=== PATIENT | male | born 1975 | race Caucasian/White ===

== ENCOUNTER 2018-06-25 19:34 | Emergency (ER) | payer OTHER ==
--- NOTE | 2018-06-25 19:56 | PDOC ---
History of Present Illness - General History Source: Patient Exam Limitations: No Limitations - History of Present Illness Initial Comments: 06/25/18 19:58 The patient is a 43 year old male with no significant past medical history of psoriasis who presents to the ER complaining of feeling stressed and fatigued today. Patient states he works evenings and has been stressed at his job. Patient reports a friend, who is an EMT, saw him today and told him he was clammy and cold. His friend took his blood pressure, which was 260 systolic. Patient has no known history of HTN and is not on any meds. Patient has not seen a PCP in several years. Patients blood pressure is 155/90 in the ER. Patient has no other complaints in the ER . The patient denies chest pain, shortness of breath, headache, and dizziness. Denies fever, chills, nausea, vomit, diarrhea, and constipation. Denies dysuria, frequency, urgency, and hematuria. Allergies: penicillins Past surgical history: None reported. Social history: No reported alcohol, drug or cigarette use. ROS General: (+) Fatigued and stressed. No fevers or chills, no weakness, no weight loss HEENT: No change in vision. No sore throat,. No ear pain CardioVascular: No chest pain or shortness of breath Respiratory:No cough, or wheezing. Gastrointestinal: no nausea, vomiting, diarrhea or constipation, No rectal bleeding Genitourinary: No dysuria, hematuria, or frequency Musculoskeletal: No joint or muscle pain or swelling Neurologic: No headache, vertigo, dizziness or loss of consciousness Psychiatric: nor depression Skin: No rashes or easy bruising Endocrine: no increased thirst or abnormal weight change Allergic: no skin or latex allergy All other systems reviewed and normal 06/25/18 19:57 Adult Exam: General: Well-nourished well-developed individual, no acute distress HEENT: Throat: Normal, tonsils normal, no erythema or exudate Neck: Supple, no meningeal signs, no lymphadenopathy Eyes::Pupils equal reactive and round, extraocular motion intact Chest: Nontender to palpation Cardiac: S1-S2 normal, regular rate and rhythm, no murmurs rubs or gallops Respiratory: Lungs clear to auscultation bilateral Abdomen: Soft, nondistended, normal bowel sounds, nontender to palpation diffusely Extremities: Warm, dry, no cyanosis, clubbing, or edema Skin: No rashes Neuro: Alert and oriented x3, nonfocal exam, grossly intact, normal gait Psych: Normal mood and affect <Janis Dexter - Last Filed: 06/25/18 20:03> - General History Source: Patient Exam Limitations: No Limitations - History of Present Illness Initial Comments: 06/25/18 20:41 A portion of this note was documented by scribe services under my direction. I have reviewed the details of the note, within reason, and agree with the documentation. The case summary and management plan written by me. Assessment and plan: This is a 43-year-old male who comes in complaining of generalized fatigue and hypertension. Patient is on no medications for his hypertension and has not followed up with his primary care doctor in many years. Patient had a basic workup with a was normal. Patient blood pressure in the emergency room was approximately 155 systolic. Patient given copies of his blood work and told that he needs to follow-up with his primary care doctor and will need to most likely be started on some blood pressure medication. 06/25/18 20:42 <Stephan Jacobs I - Last Filed: 06/25/18 20:45> - General Chief Complaint: Weakness Stated Complaint: EXTREMELY TIRED, STRESSED, DISORIENTED Time Seen by Provider: 06/25/18 19:41 Past History <Janis Dexter - Last Filed: 06/25/18 20:03> - Past Medical History COPD: No Other medical history: PSORIASIS - Surgical History Orthopedic Surgery: Yes (patellar tendon repair) - Immunization History Td Vaccination: (2004) - Suicide/Smoking/Psychosocial Hx Smoking Status: No Smoking History: Never smoked Have you smoked in the past 12 months: No Number of Cigarettes Smoked Daily: 0 Information on smoking cessation initiated: No Hx Alcohol Use: No Drug/Substance Use Hx: No Substance Use Type: None <Stephan Jacobs I - Last Filed: 06/25/18 20:45> - Past Medical History Allergies/Adverse Reactions: Allergies Allergy/AdvReac Type Severity Reaction Status Date / Time Penicillins Allergy Verified 10/06/12 15:07 Home Medications: Ambulatory Orders NK [No Known Home Medication] 06/25/18 Review of Systems - Review of Systems Able to Perform ROS?: Yes <Janis Dexter - Last Filed: 06/25/18 20:03> *Physical Exam - Vital Signs Last Vital Signs Temp Pulse Resp BP Pulse Ox 98.8 F 80 18 155/90 100 06/25/18 19:44 06/25/18 19:44 06/25/18 19:44 06/25/18 19:44 06/25/18 19:44 <Janis Dexter - Last Filed: 06/25/18 20:03> - Vital Signs Last Vital Signs Temp Pulse Resp BP Pulse Ox 98.8 F 80 18 155/90 100 06/25/18 19:44 06/25/18 19:44 06/25/18 19:44 06/25/18 19:44 06/25/18 19:44 <Stephan Jacobs I - Last Filed: 06/25/18 20:45> Heart Score/ECG Review #1 06/25/18 20:03 EKG performed at 20:04 demonstrates rate of 83, normal sinus rhythm. <Janis Dexter - Last Filed: 06/25/18 20:03> ED Treatment Course - LABORATORY CBC & Chemistry Diagram: 06/25/18 20:00 06/25/18 20:00 <Stephan Jacobs I - Last Filed: 06/25/18 20:45> *DC/Admit/Observation/Transfer - Attestations Scribe Attestion: 06/25/18 19:59 Documentation prepared by Janis Dexter, acting as medical interpreter for Stepahn Jacobs MD. <Janis Dexter - Last Filed: 06/25/18 20:03> - Discharge Dispostion Decision to Admit order: No <Stephan Jacobs I - Last Filed: 06/25/18 20:45> Diagnosis at time of Disposition: Hypertension Qualifiers: Hypertension type: essential hypertension Qualified Code(s): I10 - Essential ( primary) hypertension - Discharge Dispostion Disposition: HOME - Patient Instructions Printed Discharge Instructions: Hypertension (Alternative Therapy) Additional Instructions: Is important that you take your blood work to see her primary care doctor as you most likely will need to be started on blood pressure medication Return to the emergency department immediately with ANY new, persistent or worsening symptoms. Continue any medications as previously prescribed by your physician. You should follow up with your primary doctor as soon as possible regarding today's emergency department visit. . Please make sure your doctor reviews the results of your emergency evaluation. Thank you for coming to the Emergency Department today for your care. It was a pleasure to see you today. Please note that your evaluation is INCOMPLETE until you follow-up with your doctor.
[2018-06-25 20:09] LABS: BASO % 0.8 % (0-2.0); EOS % 1.6 % (0-4.5); HEMATOCRIT 39.7 % (35.4-49); HEMOGLOBIN 12.9 GM/dl (11.7-16.9); LYMPH % 15.3 % (8-40); MCH 26.4 pg (25.7-33.7); MCHC 32.5 g/dl (32.0-35.9); MEAN CELL VOLUME 81.2 fl (80-96); MEAN PLT VOLUME 7.3 fl (7.5-11.1); NEUT % 76.3 % (42.8-82.8); PLATELET COUNT 316 K/MM3 (134-434); RBC 4.89 M/mm3 (4.00-5.60); RDW 17.2 % (11.9-15.9); WHITE BLOOD COUNT 10.7 K/mm3 (4.0-10.8)
[2018-06-25 20:25] LABS: ALBUMIN 3.7 g/dl (3.5-5.0); ALK PHOS 53 U/L (32-92); ANION GAP 9 MMOL/L (8-16); BILIRUBIN,TOTAL 0.7 mg/dl (0.2-1.0); BLOOD UREA NITROGEN 15 mg/dl (7-18); CALCIUM 8.9 mg/dl (8.4-10.2); CHLORIDE 101 mmol/L (98-107); CO2 27 mmol/L (22-28); GLUCOSE,RANDOM 98 mg/dl (74-106); POTASSIUM 4.1 mmol/L (3.5-5.1); SGOT/AST 19 U/L (10-42); SGPT/ALT 21 U/L (10-40); SODIUM 137 mmol/L (136-145); TOT PROT 7.8 g/dl (6.4-8.3)
[2018-06-25 21:25] VITALS: BP 155/90; PULSE 80; TEMP 98.8; BMI 43.7
--- NOTE | 2018-06-26 10:48 | EKG ---
Test Reason : Blood Pressure : / mmHG Vent. Rate : 083 BPM Atrial Rate : 083 BPM P-R Int : 152 ms QRS Dur : 086 ms QT Int : 360 ms P-R-T Axes : 019 019 -01 degrees QTc Int : 423 ms NORMAL SINUS RHYTHM NORMAL ECG NO PREVIOUS ECGS AVAILABLE Confirmed by Dmitri Vega MD ([id number]) on 06/26/2018 10:48:06 AM Referred By: OXANA Confirmed By:Dmitri Vega MD
== END 2018-06-25 20:54 | disposition home or self-care (01) ==
LOC: FER 19:34
DX: I10 Essential (primary) hypertension (principal)
CPT/HCPCS: 36415; 80053; 82550; 84484; 85025; 93005; 99281-25